=== PATIENT | male | born 1995 | race Caucasian/White ===

== ENCOUNTER 2022-07-28 07:05 | Outpatient (REF) | payer BC, SELFPAY ==
[2022-07-28 11:23] LABS: Appearance Urine Clear; Color Urine Yellow; Glucose Urine UA Negative (Negative); Leukocyte Esterase Urine Negative (Negative); Nitrite Urine Negative (Negative); Urine Blood Negative (Negative); Urine Ketones Negative (Negative); Urine Protein Negative (Neg-Trace)
[2022-07-28 11:57] LABS: Alanine Aminotransferase 25 U/L (0-40); Albumin Level 4.7 g/dL (3.5-5.0); Alkaline Phosphatase 65 U/L (39-117); Anion Gap 13 (12-20); Aspartate Amino Transferase 20 U/L (5-37); Bilirubin Total 1.8 mg/dL (0.0-1.0); Blood Urea Nitrogen 18 mg/dL (9-16); Calcium 9.8 mg/dL (8.4-10.2); Carbon Dioxide 29 mmol/L (22-29); Chloride 104 mmol/L (96-108); Cholesterol 160 mg/dL; Estimated Glomerular Filt Rate > 60; Glucose Random 94 mg/dL (60-115); HDL Cholesterol 45 mg/dL; LDL Cholesterol Calculated 99 mg/dl; Potassium 4.4 mmol/L (3.3-5.1); Sodium 142 mmol/L (135-145); TSH reflex Free T4 3.73 uIU/mL (0.32-4.0); Total Protein 7.3 g/dL (6.5-8.0); Triglycerides 83 mg/dL
[2022-07-29 08:59] LABS: LDL Cholesterol Direct 95 mg/dL (<100)
== END 2022-07-28 07:06 | disposition home or self-care (01) ==
LOC: HO.WFDLDS 07:05
PROVIDERS: Visit Provider Family Medicine
DX: Z00.00 Encounter for general adult medical examination without abnormal findings (principal)
CPT/HCPCS: 36415; 80053; 80061; 81003; 83721; 84443

== ENCOUNTER 2023-07-26 16:13 | Outpatient (AMB) | payer BC, SELFPAY ==
[2023-07-26 16:17] VITALS: BP 126/70; PULSE 98; O2SAT 99; BMI 25.7
--- NOTE | 2023-07-26 16:17 | MHC.PC.OV ---
Vital Signs 07/26/23 16:17 Height 5 ft 11 in Weight 184 lb 2 oz BMI 25.7 BP 126/70 Blood Pressure Location Lt brachial Pulse 98 Pulse Source Pulse Oximeter Pulse Oximetry (%) 99 Oxygen Delivery Method Room Air Intake Visit Reasons: Physical Exam Intake Note: Patient is here for physical today. Allergies No Known Allergies Allergy (Verified 07/26/23 16:18) Tobacco use date assessed: 07/26/23 Dental Screening Dental Screen Date: 07/26/23 Did you have a dental visit in the last 12 months?: Yes Did you have a dental problem in the last 6 months where you did not have access to dental care?: No Was dental information given to patient?: Yes HPI Physical Exam HPI Details 28 y/o male [place] [facility] labs and health maintenance. No recent labs to review. He is on Adderall 20mg b.i.d. for his ADHD. He denies any increased anxiety, appetite suppression or difficulty sleeping. [facility] Surgical History No pertinent past surgical history Family History Mother No problems noted. Father No problems noted. Social History Housing: Apartment Alcohol intake: current Alcohol intake frequency: a few times a week Patient Tobacco Use Status: Never used Tobacco e-Cigarette/Vaping Use: Never Used Second Hand Smoke Exposure: No service: No Current occupational status: employed Current occupation: contruction material Current occupational exposures/hazards: No Cognitive needs: No Hearing needs: No Vision needs: No Questionnaire PHQ-9 Over the last 2 weeks, how often have you been bothered by any of the following problems? 1. Little interest or pleasure in doing things: not at all 2. Feeling down, depressed, or hopeless: not at all 3. Trouble falling or staying asleep, or sleeping too much: not at all 4. Feeling tired or having little energy: not at all 5. Poor appetite or overeating: not at all 6. Feeling bad about yourself - or that you are a failure or have let yourself or your family down: not at all 7. Trouble concentrating on things, such as reading the newspaper or watching television: not at all 8. Moving or speaking so slowly that other people could have noticed. Or the opposite - being so fidgety or restless that you have been moving around a lot more than usual: not at all 9. Thoughts that you would be better off or of hurting yourself in some way: not at all Total score: 0 Depression Screening Interpretation: Negative Depression Screening Done: Yes Source: Developed by Drs. Aris Magana, Lorene Sanches, Kobi Reddy and colleagues, with an educational kwaku from [employer] Thrive Questionnaire Date Thrive assessed: 07/26/23 I am a: Patient What is your living situation today?: I have a steady place to live Within the past 12 months, did the food you bought not last and you didn't have the money to get more?: Never true Within the past 12 months, did you worry whether your food would run out before you got money to buy more?: Never true Do you have trouble paying for medicines?: No Do you have trouble getting transportation to medical appointments?: No Do you have trouble paying your heating and electricity bill?: No Do you have trouble taking care of your child, family member or friend?: No Do you have trouble with day-to-day activities such as bathing, preparing meals, shopping, managing finances, etc.?: No Are you currently unemployed and looking for a job?: No Are you interested in more education?: No THRIVE Score: 0 AUDIT C Alcohol Use Questionnaire (AUDIT-C) 1. How often do you have a drink containing alcohol?: Monthly or less 2. How many drinks containing alcohol do you have on a typical day when you are drinking?: 3 or 4 3. How often do you have six or more drinks on one occasion?: Never Total Score: 2 NOLBERTO-7 AMB Questionnaire NOLBERTO-7 Date NOLBERTO - 7 assessed: 07/26/23 Feeling nervous, anxious, or on edge: 0 = Not at all Not being able to stop or control worryin = Not at all Worrying too much about different things: 0 = Not at all Trouble relaxin = Not at all Being so restless that it is hard to sit still: 0 = Not at all Becoming easily annoyed or irritable: 0 = Not at all Feeling afraid as if something awful might happen: 0 = Not at all Total NOLBERTO-7 score (0-4 normal; 5-9 mild; 10-14 moderate; 15-21 severe): 0 Source: Developed by Drs. Aris Magana, Lorene Sanches, Kobi Reddy and colleagues, with an educational kwaku from [employer] Review of Systems Const Denies chills, Denies fatigue, Denies fever(s), Denies headache(s) and Denies weakness Eyes Denies change in vision ENT Denies dizziness, Denies headache(s), Denies hearing loss, Denies nasal congestion, Denies sinus pain, Denies sinus pressure and Denies sore throat Card Denies chest pain, Denies lightheadedness, Denies dyspnea and Denies other (palpitations) Resp Denies cough, Denies dyspnea and Denies wheezing GI Denies abdominal pain, Denies melena, Denies hematochezia, Denies change in bowel habits, Denies dyspepsia and Denies nausea Denies hematuria and Denies dysuria Musc Denies abnormal gait, Denies myalgias, Denies arthralgias, Denies numbness and Denies tingling Skin/Breast Denies rash, Denies unusual bruising and Denies wounds Neuro Denies abnormal gait, Denies dizziness, Denies headache(s), Denies memory loss, Denies numbness, Denies Sensory deficit (Neuro), Denies tingling and Denies weakness Psych Denies anxiety, Denies depression and Denies memory loss Endo Denies cold intolerance, Denies fatigue, Denies heat intolerance, Denies polydipsia and Denies polyuria Callum/Lymph Denies easy bleeding and Denies easy bruising Aller/Immun Denies wheezing Physical exam (Primary Care) BMI result Body Mass Index 25.7 Tobacco/Smoking Status: Tobacco use Status Tobacco use date assessed 07/26/23 07/26/23 16:27 Patient Tobacco Use Status Never used Tobacco 07/26/23 16:27 e-Cigarette/Vaping Use Never Used 07/26/23 16:27 PHQ-9: PHQ-9 Score PHQ-9: Total score 0 07/26/23 16:27 Depression Screening Interpretation: Negative Thrive Assessment: Date of Thrive Assessment Date Thrive assessed 07/26/23 07/26/23 16:27 Const General: no acute distress, well developed, alert and awake Nutritional Appearance: well nourished Orientation/consciousness: patient oriented x3 HENMT Head: Yes normocephalic and Yes atraumatic Ears: hearing grossly normal bilaterally and TM's normal bilaterally General nose exam: Normal external nose present and Normal nares present Mouth: Normal oral and palatal mucosa present and moist mucous membranes Teeth and gingiva: dentition normal Throat: Yes posterior oropharynx normal Eyes General: appearance normal, both eyes and all related structures Pupils: Equal, round and reactive pupils present and Pupil accommodation reflex normal EOM: EOMs intact bilaterally Neck Neck: Yes normal visual inspection, Yes no lymphadenopathy and Yes trachea midline Thyroid: Thyroid normal Carotids: no bruits Lymphatic: no lymphadenopathy noted Chest Chest palpation & inspection: normal inspection of the chest Resp Effort & Inspection: normal respiratory effort Auscultation: clear to auscultation bilaterally Cardio Rate: regular rate Rhythm: regular rhythm Heart sounds: S1 normal heart sound present, S2 normal heart sound present, no gallops, no murmurs and no rubs Bruits: no abdominal aortic bruits and no carotid bruits GI Palpation (GI): No Abdominal aortic bruit present, Soft to palpation, nontender, No hepatosplenomegaly present and No Rebound tenderness present Auscultation: normal bowel sounds General: Yes no CVA tenderness Back/Spine/Pelvis Back: no CVA tenderness Cervical Spine: cervical ROM normal and No Cervical spine tenderness Thoracic/Lumbar Spine: thoraco-lumbar ROM normal, No pain with thoraco-lumbar ROM, No thoracic spinal tenderness and No lumbar spinal tenderness Skin Lesions: no lesions Rashes: no rashes Trauma: no lacerations or abrasions Wounds: no wounds Nails: normal Neuro General: patient oriented x3 Cranial nerves: Yes Equal, round and reactive pupils present Cognition (Neuro): normal cognition Gait exam (Neuro): Normal gait present Motor exam (neuro): 5/5 motor strength present throughout Sensory Exam: No Sensory deficit (Neuro) Deep tendon reflexes (DTR's): Right patellar reflex intensity grade: 2+ and Left patellar reflex intensity grade: 2+ Extrem General: Yes normal to inspection and No edema Psych Appearance: grossly normal Affect: normal affect Attitude: cooperative Thought process: Normal thought process present Assessment and Plan Assessment & Plan (1) Annual physical exam: Code(s): Z00.00 - Encounter for general adult medical examination without abnormal findings Plan: 28-year-old?male?presents?for?complete?physical?exam Exam?within?normal?limits Encouraged?healthy?diet (2) ADHD: Code(s): F90.9 - Attention-deficit hyperactivity disorder, unspecified type Plan: Patient?taking?Adderall?20?mg?twice?a?day.??Medication?is?effective.??He?has?no?adverse?effects?such?as?anxiety,?appetite?suppression?or?difficulty?sleeping. Continue?current?medication?regimen Orders: Orders Lipid Panel Today Z00.00 - Encounter for general adult medical examination without abnormal findings Comprehensive [place]. Panel Fast Today Z00.00 - Encounter for general adult medical examination without abnormal findings Microalbumin, Random (w Creat) Today I10 - Essential (primary) hypertension TSH reflex Free T4 Today Z00.00 - Encounter for general adult medical examination without abnormal findings UA and rflx microscopic Today Z00.00 - Encounter for general adult medical examination without abnormal findings Medications: Refilled dextroamphetamine-amphetamine 20 mg (Adderall) administer doses at least 4-6 hours apart. [facility] verified. Partial refill upon request. 20 mg PO BID 20 tabs 0RF 10 days Coding Level of Care Code Est Pt Level 3 (80497) Est Pt Prev Care 18-39y(31910) Diagnoses Annual physical exam Z00.00 ADHD F90.9
== END 2023-07-26 16:37 | disposition home or self-care (01) ==
PROVIDERS: PCP Family Medicine; Visit Provider Family Medicine
DX: Z00.00 Encounter for general adult medical examination without abnormal findings (principal); F90.9 Attention-deficit hyperactivity disorder, unspecified type
CPT/HCPCS: 99395

== ENCOUNTER 2023-11-13 10:34 | Outpatient (AMB) | payer BC, SELFPAY ==
[2023-11-13 10:39] VITALS: BP 122/72; PULSE 90; O2SAT 98; BMI 25.0
--- NOTE | 2023-11-13 10:39 | A.OFFPC_ITS ---
Vital Signs 11/13/23 10:39 Height 5 ft 11 in Weight 179 lb 8 oz BMI 25.0 BP 122/72 Blood Pressure Location Lt brachial Position Sitting Pulse 90 Pulse Source Pulse Oximeter Pulse Oximetry (%) 98 Oxygen Delivery Method Room Air Intake Visit Reasons: ADHD medication follow up Intake Note: Patient is following up on his adderall today. Allergies No Known Allergies Allergy (Verified 11/13/23 10:40) Tobacco use date assessed: 11/13/23 Dental Screening Dental Screen Date: 07/26/23 HPI ADHD medication follow up HPI Details 28 y/o male presents to f/u ADHD meds. He is on Adderall 20mg. Medication effective. Denies any issues with sleep, appetite, increased anxiety. PFSH Surgical History No pertinent past surgical history Family History Mother No problems noted. Father No problems noted. Social History Housing: Apartment Alcohol intake: current Alcohol intake frequency: a few times a week Patient Tobacco Use Status: Never used Tobacco e-Cigarette/Vaping Use: Never Used Second Hand Smoke Exposure: No service: No Current occupational status: employed Current occupation: [employer] Current occupational exposures/hazards: No Cognitive needs: No Hearing needs: No Vision needs: No Questionnaire Thrive Questionnaire Date Thrive assessed: 07/26/23 NOLBERTO-7 AMB Questionnaire NOLBERTO-7 Date NOLBERTO - 7 assessed: 07/26/23 Source: Developed by Drs. Aris Magana, Lorene Sanches, Kobi Reddy and colleagues, with an educational kwaku from [employer]. Review of Systems Const Denies chills, Denies fatigue, Denies fever(s), Denies headache(s) and Denies weakness ENT Denies dizziness and Denies headache(s) Card Denies dyspnea Resp Denies cough, Denies dyspnea, Denies wheezing and Denies other (shortness of breath) Musc Denies numbness and Denies tingling Neuro Denies dizziness, Denies headache(s), Denies numbness, Denies tingling and Denies weakness Psych Denies anxiety and Denies depression Endo Denies fatigue Aller/Immun Denies wheezing Physical exam (Primary Care) Vital Signs: Last Vital Signs Pulse 90 11/13/23 10:39 BP 122/72 11/13/23 10:39 Pulse Ox 98 11/13/23 10:39 Oxygen Delivery Method Room Air 11/13/23 10:39 BMI result Body Mass Index 25.0 Tobacco/Smoking Status: Tobacco use Status Tobacco use date assessed 11/13/23 11/13/23 10:41 Patient Tobacco Use Status Never used Tobacco 11/13/23 10:41 e-Cigarette/Vaping Use Never Used 11/13/23 10:41 Thrive Assessment: Date of Thrive Assessment Date Thrive assessed 07/26/23 11/13/23 10:41 Const General: well developed; No acute distress Nutritional Appearance: well nourished Orientation/consciousness: patient oriented x3 HENMT Head: Yes normocephalic and Yes atraumatic Eyes General: appearance normal, both eyes and all related structures Pupils: Equal, round and reactive pupils present EOM: EOMs intact bilaterally Resp Effort & Inspection: normal respiratory effort Neuro General: patient oriented x3 and gait normal Cranial nerves: Yes Equal, round and reactive pupils present Psych Affect: normal affect Assessment and Plan Assessment & Plan (1) ADHD: Code(s): F90.9 - Attention-deficit hyperactivity disorder, unspecified type Plan: Medication?is?efficacious. No?adverse?effects?such?as?problems?with?sleep,?appetite?or?anxiety. Will?be?due?for?urine?drug?screen?at?next?visit?or?can?get?this?done?with?CPE- labs?which?he?has?not?gotten?done?yet. Coding Level of Care Code Est Pt Level 3 (22248) Diagnoses ADHD F90.9
== END 2023-11-13 11:15 | disposition home or self-care (01) ==
PROVIDERS: PCP Family Medicine; Visit Provider Family Medicine
DX: F90.9 Attention-deficit hyperactivity disorder, unspecified type (principal)
CPT/HCPCS: 99213

== ENCOUNTER 2024-03-14 09:25 | Outpatient (AMB) | payer BC, SELFPAY ==
--- NOTE | 2024-03-14 09:35 | A.OFFPC_ITS ---
Vital Signs 03/14/24 09:37 Height 5 ft 11 in Weight 182 lb 2 oz BMI 25.4 BP 110/60 Blood Pressure Location Lt brachial Position Sitting Respiration 12 Pulse 93 Pulse Source Pulse Oximeter Temp 98.6 F Temp Source Tympanic Pulse Oximetry (%) 99 Oxygen Delivery Method Room Air Intake Visit Reasons: ADHD medication follow up Intake Note: ADHD medication follow up Allergies No Known Allergies Allergy (Verified 03/14/24 09:36) Medication List - Last Reconciled 03/14/24 by Levi Bass MD dextroamphetamine-amphetamine 20 mg (Adderall) 20 mg PO BID 30 days Tobacco use date assessed: 11/13/23 Dental Screening Dental Screen Date: 07/26/23 HPI ADHD medication follow up HPI Details 28 y/o male presents to f/u ADHD. He is on Adderall 20mg. Denies any appetite issues, sleep difficulties, worsening anxiety. Meds working well for him. HPI Comments History of Present Illness Details Documentation assistance for Levi Bass MD, was provided by Bautista Munoz, Manager Internal on 03/14/2024 at 10:24 AM EST. I, Dr. Bass, have read, o bserved, and verified documentation. [facility] Surgical History No pertinent past surgical history Family History Mother No problems noted. Father No problems noted. Social History Housing: Apartment Alcohol intake: current Alcohol intake frequency: a few times a week Patient Tobacco Use Status: Never used Tobacco e-Cigarette/Vaping Use: Never Used Second Hand Smoke Exposure: No service: No Current occupational status: employed Current occupation: contruction material Current occupational exposures/hazards: No Cognitive needs: No Hearing needs: No Vision needs: No Questionnaire Thrive Questionnaire Date Thrive assessed: 07/26/23 NOLBERTO-7 AMB Questionnaire NOLBERTO-7 Date NOLBERTO - 7 assessed: 07/26/23 Source: Developed by Drs. Aris Magana, Lorene Sanches, Kobi Reddy and colleagues, with an educational kwaku from [employer]. Review of Systems Const Denies chills, Denies fatigue, Denies fever(s), Denies headache(s) and Denies weakness ENT Denies dizziness and Denies headache(s) Card Denies dyspnea Resp Denies cough, Denies dyspnea, Denies wheezing and Denies other (shortness of breath) Musc Denies numbness and Denies tingling Neuro Denies dizziness, Denies headache(s), Denies numbness, Denies tingling and Denies weakness Psych Denies anxiety and Denies depression Endo Denies fatigue Aller/Immun Denies wheezing Physical exam (Primary Care) Vital Signs: Last Vital Signs Temp 98.6 F 03/14/24 09:37 Pulse 93 03/14/24 09:37 Resp 12 03/14/24 09:37 BP 110/60 03/14/24 09:37 Pulse Ox 99 03/14/24 09:37 Oxygen Delivery Method Room Air 03/14/24 09:37 BMI result Body Mass Index 25.4 Tobacco/Smoking Status: Tobacco use Status Tobacco use date assessed 11/13/23 03/14/24 09:39 Patient Tobacco Use Status Never used Tobacco 03/14/24 09:39 e-Cigarette/Vaping Use Never Used 03/14/24 09:39 Thrive Assessment: Date of Thrive Assessment Date Thrive assessed 07/26/23 03/14/24 09:39 Const General: well developed; No acute distress Nutritional Appearance: well nourished Orientation/consciousness: patient oriented x3 [facility]: Yes normocephalic and Yes atraumatic Eyes General: appearance normal, both eyes and all related structures Pupils: Equal, round and reactive pupils present EOM: EOMs intact bilaterally Resp Effort & Inspection: normal respiratory effort Auscultation: clear to auscultation bilaterally Cardio Rate: regular rate Rhythm: regular rhythm Heart sounds: S1 normal heart sound present, S2 normal heart sound present, no gallops, no murmurs and no rubs Neuro General: patient oriented x3 and gait normal Cranial nerves: Yes Equal, round and reactive pupils present Psych Affect: normal affect Assessment and Plan Assessment & Plan (1) ADHD: Code(s): F90.9 - Attention-deficit hyperactivity disorder, unspecified type Plan: Medication?is?efficacious?and?causing?no ?significant?adverse?effects?such?as?sleep,?anxiety?or?appetite?disturbances. Continue?current?medication Patient?was?due?for?urine?drug?screen?which?was?given?today. Plan Patient?was?overdue?for?lab?work?which?was?ordered?at?his?last?complete?physical . He?has?gotten?this?drawn?today Orders: Orders Microalbumin, Random (w Creat) Today I10 - Essential (primary) hypertension UA and rflx microscopic Today Z00.00 - Encounter for general adult medical examination without abnormal findings Lipid Panel Today Z00.00 - Encounter for general adult medical examination without abnormal findings TSH reflex Free T4 Today Z00.00 - Encounter for general adult medical examination without abnormal findings Drug Screen Urine Today F90.9 - Attention-deficit hyperactivity disorder, unspecified type Comprehensive Met. Panel Today F90.9 - Attention-deficit hyperactivity disorder, unspecified type Coding Level of Care Code Est Pt Level 3 (39532) Diagnoses ADHD F90.9
[2024-03-14 09:37] VITALS: BP 110/60; PULSE 93; RESP 12; TEMP 37; O2SAT 99; BMI 25.4
== END 2024-03-14 10:28 | disposition home or self-care (01) ==
PROVIDERS: PCP Family Medicine; Visit Provider Family Medicine
DX: F90.9 Attention-deficit hyperactivity disorder, unspecified type (principal)

== ENCOUNTER → 2024-03-14 09:25 | Outpatient (BNVA) | payer BC, SELFPAY | PROVIDERS: PCP Family Medicine; Visit Provider Family Medicine | DX: F90.9 Attention-deficit hyperactivity disorder, unspecified type (principal) ==

== ENCOUNTER 2024-03-14 10:15 | Outpatient (REF) | payer BC, SELFPAY ==
[2024-03-14 14:20] LABS: Appearance Urine Clear; Color Urine Yellow; Glucose Urine UA Negative (Negative); Leukocyte Esterase Urine Negative (Negative); Nitrite Urine Negative (Negative); Specific Gravity - Urine <= 1.005 (1.005-1.025); Urine Blood Negative (Negative); Urine Ketones Negative (Negative); Urine Protein Negative (Neg-Trace)
[2024-03-14 14:31] LABS: Amphetamine Screen Urine POSITIVE (Not Detect); Barbiturates, Urine Not Detected (Not Detect); Benzodiazepines Screen Urine Not Detected (Not Detect); Buprenorphine Scr Not Detected (Not Detect); Cannabinoid Screen Urine Not Detected (Not Detect); Cocaine Screen Urine Not Detected (Not Detect); Fentanyl, urine Not Detected (Not Detect); Methadone Screen, Urine Not Detected (Not Detect); Opiate Screen Urine Not Detected (Not Detect); Oxycodone Screen Urine Not Detected (Not Detect); Phencyclidine Screen Urine Not Detected (Not Detect)
[2024-03-14 14:59] LABS: Alanine Aminotransferase 35 U/L (0-40); Albumin Level 4.2 g/dL (3.5-5.0); Alkaline Phosphatase 62 U/L (39-117); Anion Gap 10 (12-20); Aspartate Amino Transferase 21 U/L (5-37); Bilirubin Total 1.5 mg/dL (0.0-1.0); Blood Urea Nitrogen 27 mg/dL (9-16); Calcium 9.6 mg/dL (8.4-10.2); Carbon Dioxide 28 mmol/L (22-29); Chloride 106 mmol/L (96-108); Cholesterol 146 mg/dL (<200); Estimated Glomerular Filt Rate > 60; Glucose Random 62 mg/dL (60-115); HDL Cholesterol 45 mg/dL (>40); LDL Cholesterol Calculated 91 mg/dL (<100); Potassium 3.9 mmol/L (3.3-5.1); Sodium 140 mmol/L (135-145); TSH reflex Free T4 1.49 uIU/mL (0.32-4.0); Total Protein 7.1 g/dL (6.5-8.0); Triglycerides 54 mg/dL (<150)
[2024-03-14 15:12] LABS: Creatinine Urine 15.45 mg/dL; Microalbumin Urine < 5.0 mg/L
== END 2024-03-14 10:16 | disposition home or self-care (01) ==
LOC: HO.WFDLDS 10:15
PROVIDERS: Visit Provider Family Medicine
DX: F90.9 Attention-deficit hyperactivity disorder, unspecified type (principal); Z79.899 Other long term (current) drug therapy; Z00.00 Encounter for general adult medical examination without abnormal findings; I10 Essential (primary) hypertension
CPT/HCPCS: 80053; 80061; 80307; 81003; 82043; 82570; 84443

== ENCOUNTER 2024-09-22 16:16 | Outpatient (AMB) | payer BC, SELFPAY ==
--- NOTE | 2024-09-22 16:27 | A.OFFPC_ITS ---
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 He is on Adderall 20mg b.i.d. Denies any issues with increased anxiety, sleep, appetite. PFSH Surgical History No pertinent past surgical history Family History Mother No problems noted. Father No problems noted. Social History Housing: Apartment Alcohol intake: current Alcohol intake frequency: a few times a week Patient Tobacco Use Status: Never used Tobacco e-Cigarette/Vaping Use: Never Used Second Hand Smoke Exposure: No service: No Current occupational status: employed Current occupation: contruction material Current occupational exposures/hazards: No Cognitive needs: No Hearing needs: No Vision needs: No Questionnaire PHQ-9 Over the last 2 weeks, how often have you been bothered by any of the following problems? 1. Little interest or pleasure in doing things: not at all 2. Feeling down, depressed, or hopeless: not at all 3. Trouble falling or staying asleep, or sleeping too much: not at all 4. Feeling tired or having little energy: not at all 5. Poor appetite or overeating: not at all 6. Feeling bad about yourself - or that you are a failure or have let yourself or your family down: not at all 7. Trouble concentrating on things, such as reading the newspaper or watching television: not at all 8. Moving or speaking so slowly that other people could have noticed. Or the opposite - being so fidgety or restless that you have been moving around a lot more than usual: not at all 9. Thoughts that you would be better off or of hurting yourself in some way: not at all Total score: 0 Depression Screening Interpretation: Negative Depression Screening Done: Yes 02934 - PHQ-9 Billing: Yes Source: Developed by Drs. Aris Magana, Lorene Sanches, Kobi Reddy and colleagues, with an educational kwaku from [email or web address]. Thrive Questionnaire Date Thrive assessed: 09/22/24 I am a: Patient What is your living situation today?: I have a steady place to live Within the past 12 months, did the food you bought not last and you didn't have the money to get more?: Never true Within the past 12 months, did you worry whether your food would run out before you got money to buy more?: Never true Do you have trouble paying for medicines?: No Do you have trouble getting transportation to medical appointments?: No Do you have trouble paying your heating and electricity bill?: No Do you have trouble taking care of your child, family member or friend?: No Do you have trouble with day-to-day activities such as bathing, preparing meals, shopping, managing finances, etc.?: No Are you currently unemployed and looking for a job?: No Are you interested in more education?: No Please select the resources that you would like help with: None Currently or been in a relationship where the following occur: No concerns reported THRIVE Score: 0 AUDIT C Alcohol Use Questionnaire (AUDIT-C) 1. How often do you have a drink containing alcohol?: 2-4 times a month 2. How many drinks containing alcohol do you have on a typical day when you are drinking?: 1 or 2 3. How often do you have six or more drinks on one occasion?: Never Total Score: 2 NOLBERTO-7 AMB Questionnaire NOLBERTO-7 Date NOLBERTO - 7 assessed: 09/22/24 Feeling nervous, anxious, or on edge: 0 = Not at all Not being able to stop or control worryin = Not at all Worrying too much about different things: 0 = Not at all Trouble relaxin = Not at all Being so restless that it is hard to sit still: 0 = Not at all Becoming easily annoyed or irritable: 0 = Not at all Feeling afraid as if something awful might happen: 0 = Not at all Total NOLBERTO-7 score (0-4 normal; 5-9 mild; 10-14 moderate; 15-21 severe): 0 Source: Developed by Drs. Aris Magana, Lorene Sanches, Kobi Reddy and colleagues, with an educational kwaku from [email or web address]. NOLBERTO-7 Assessment Billing NOLBERTO-7 Assessment Tool: NOLBERTO-7 Assessment 44604 Review of Systems Const Denies chills, Denies fatigue, Denies fever(s), Denies headache(s) and Denies weakness ENT Denies dizziness and Denies headache(s) Card Denies chest pain, Denies lightheadedness, Denies dyspnea and Denies other (Palpitations) Resp Denies cough, Denies dyspnea, Denies wheezing and Denies other ( shortness of breath) Musc Denies numbness and Denies tingling Neuro Denies dizziness, Denies headache(s), Denies numbness, Denies tingling, Denies paresthesias and Denies weakness Psych Denies anxiety and Denies depression Endo Denies fatigue Aller/Immun Denies wheezing Physical exam (Primary Care) Vital Signs: Last Vital Signs Temp 98.0 F 09/22/24 16:28 Pulse 80 09/22/24 16:28 Resp 14 09/22/24 16:28 BP 110/60 09/22/24 16:28 Pulse Ox 97 09/22/24 16:28 Oxygen Delivery Method Room Air 09/22/24 16:28 BMI result Body Mass Index 24.5 Tobacco/Smoking Status: Tobacco use Status Tobacco use date assessed 11/13/23 09/22/24 16:32 Patient Tobacco Use Status Never used Tobacco 09/22/24 16:32 e-Cigarette/Vaping Use Never Used 09/22/24 16:32 PHQ-9: PHQ-9 Score PHQ-9: Total score 0 09/22/24 16:32 Depression Screening Interpretation: Negative Thrive Assessment: Date of Thrive Assessment Date Thrive assessed 09/22/24 09/22/24 16:32 Currently or been in a relationship where the following occur: No concerns repo rted Const General: no acute distress and well developed Nutritional Appearance: well nourished Orientation/consciousness: patient oriented x3 HENMT Head: Yes normocephalic and Yes atraumatic Eyes General: appearance normal, both eyes and all related structures Pupils: Equal, round and reactive pupils present EOM: EOMs intact bilaterally Resp Effort & Inspection: normal respiratory effort Auscultation: clear to auscultation bilaterally Cardio Rate: regular rate Rhythm: regular rhythm Heart sounds: S1 normal heart sound present, S2 normal heart sound present, no gallops, no murmurs and no rubs Neuro General: patient oriented x3 and gait normal Cranial nerves: Yes Equal, round and reactive pupils present Psych Affect: normal affect Coding Level of Care Code Est Pt Level 3 (71826) Diagnoses ADHD F90.9 Additional Codes NOLBERTO-7 Assessment Billing - NOLBERTO-7 Assessment Tool: NOLBERTO-7 Assessment 32854 ([id number]) PHQ-9 - 91173 - PHQ-9 Billing: Yes ([id number]) Assessment & Plan Assessment & Plan (1) ADHD: Code(s): F90.9 - Attention-deficit hyperactivity disorder, unspecified type Category: Medical Plan: Medication?is?working?well. No?adverse?effects?such?as?anxiety,?sleep?disturbance?or?appetite?suppression. Urine?screen?at?last?visit?was?appropriate Continue?current?medication Medications: Refilled dextroamphetamine-amphetamine 20 mg (Adderall) administer doses at least 4-6 hours apart. [facility] verified. Partial refill upon request. 20 mg PO BID 30 days 60 tabs 0RF
[2024-09-22 16:28] VITALS: BP 110/60; PULSE 80; RESP 14; TEMP 36.7; O2SAT 97; BMI 24.5
--- OUTSIDE RECORDS SUMMARY | 2024-09-22 17:54 | XMS_ITS | Continuity of Care Document ---
Author Organization [facility] Address [address] [place] [address] Phone Care Team Providers Care Director Trade Name Role Phone Titus Kelly MD Unavailable Unavailable Allergies, Adverse Reactions, Alerts Substance Reaction Status Criticality No Known allergies Medications Medication Instructions Dosage Effective Dates (start - stop) Status Comments ALEVE (unknown strength) Not Available - Active Advance Directives Directive Yes / No Effective Date File Name Resuscitation Not Answered N/A N/A Life Support Not Answered N/A N/A Intubation Not Answered N/A N/A Antibiotics Not Answered N/A N/A IV Fluid Support Not Answered N/A N/A Tube Feed Not Answered N/A N/A Other Directive N/A N/A WARNING:The information contained in this section is historical and is provided for information only and does not constitute a legal document or any assurance that the information is still accurate. Please verify the information with the gomes of the legal document before using it for clinical purposes. Encounters Encounter Description Practice Location Reason(s) For Visit Diagnoses Date Provider Providers Copied on Encounter [facility], [facility] [place], [address], [place] tel:[phone] [facility] lumbar spine pain (chief complaint) No Information 9 Robin Qureshi. [address] [place], [place], [id number] . tel:[phone] [facility], [facility] [place], [address], [place] tel:[phone] Riri Felder left knee pain (chief complaint) No Information 200 8 Robin Qureshi. [address], [place], [place], [id number] . tel: [phone] Family History Family Member Type Diagnosis Age At Onset Problem (finding) Family history of alzhe sae's disease Payers Payer name Insurance type Covered democrat ID Authoriza tion(s) No Information Social History Type Description Quantity Date Captured Comments Alcohol Use Details No Caffeine Use Details Tobacco Use Status No Information Smoking Status No Information Sex Male Chief Complaint And Reason For Visit From encounter dated '12/24/2008 16:30'. lumbar spine pain (chief complaint). Description: Onset: 3 Day(s) ago. Location of pain was lower back and left flank. The patient describes the pain as an ache, discomforting and dull. Symptom is aggravated by daily activities. Relieving factors include ice and stretching. Additional information: Pt states was doing sprints for conditioning for football and felt an ache in back on left side, Pt.states pain is getting better,. Reason For Referral Reason For Referral No Information History Of Present Illness Encounter Date Complaint History Of Prese nt Illness No Information Functional Status Date Functional Assessmen t No Information Instructions Date Instruction Additional Infor mation No Information Assessments Type Assessment Date No Information Patient Care Teams Name Effective Dates (start - stop) Status Members No Information
== END 2024-09-22 17:01 | disposition home or self-care (01) ==
LOC: HO.HMCFM 16:17
PROVIDERS: PCP Family Medicine; Visit Provider Family Medicine
DX: F90.9 Attention-deficit hyperactivity disorder, unspecified type (principal)

== ENCOUNTER → 2024-09-22 16:16 | Outpatient (BNVA) | payer BC, SELFPAY | PROVIDERS: PCP Family Medicine; Visit Provider Family Medicine | DX: F90.9 Attention-deficit hyperactivity disorder, unspecified type (principal); Z79.899 Other long term (current) drug therapy | CPT/HCPCS: 96127 ==